=== PATIENT | female | born 1960 | race African-American/Black ===

== ENCOUNTER 2016-10-28 11:30 | Emergency (ER) | payer SELFPAY ==
[~2016-10-28] VITALS: Ht 162.6 cm; Wt 93.5 kg
[2016-10-28 11:43] VITALS: Ht 162.6 cm; Wt 93.5 kg
== END 2016-10-28 16:21 | disposition left against medical advice (07) ==
LOC: E/R 11:30
DX: Z53.21 Procedure and treatment not carried out due to patient leaving prior to being seen by health care provider (principal)
CPT/HCPCS: 82962